=== PATIENT | female | born 1955 | race Two or more races ===

== ENCOUNTER 2018-06-21 16:06 | Emergency (ER) | payer OTHER ==
[~2018-06-21] VITALS: Ht 160 cm; Wt 65.8 kg
== END 2018-06-21 17:22 | disposition home or self-care (01) ==
LOC: ER 16:06
DX: M79.89 Other specified soft tissue disorders (principal)

== ENCOUNTER 2018-06-28 11:49 | Emergency (ER) | payer OTHER ==
[~2018-06-28] VITALS: Ht 162.6 cm; Wt 64.9 kg
== END 2018-06-28 17:20 | disposition home or self-care (01) ==
LOC: ER 11:49
DX: M25.562 Pain in left knee (principal)

== ENCOUNTER 2018-07-19 11:25 | Outpatient (CLI) | payer OTHER | END 2018-07-19 11:42 | disposition home or self-care (01) | LOC: MRI 11:25 | DX: M25.562 Pain in left knee (principal) | CPT/HCPCS: 73721 ==

== ENCOUNTER 2018-09-04 12:53 | Outpatient (CLI) | payer OTHER | END 2018-09-04 12:58 | disposition home or self-care (01) | LOC: SONOGRAMA 12:53 → MAMO-SONO 13:15 | DX: S82.032A Displaced transverse fracture of left patella, initial encounter for closed fracture (principal); M65.341 Trigger finger, right ring finger; M65.342 Trigger finger, left ring finger ==

== ENCOUNTER 2018-12-31 10:49 | Emergency (ER) | payer OTHER ==
[~2018-12-31] VITALS: Ht 160 cm; Wt 66.2 kg
[2018-12-31] MEDS ORDERED: KETO10TA2 PO (19:11)
[2018-12-31] MEDS ORDERED: SKELAXIN800 MG PO (19:11)
== END 2018-12-31 19:26 | disposition home or self-care (01) ==
LOC: ER 10:49
DX: K59.09 Other constipation (principal); M54.5 Low back pain; R10.31 Right lower quadrant pain

== ENCOUNTER 2019-03-04 13:35 | Emergency (ER) | payer OTHER ==
[~2019-03-04] VITALS: Ht 160 cm; Wt 61.2 kg
[~2019-03-04 13:35] MED LIST: KETO10TA2 PO; SKELAXIN800 MG PO
== END 2019-03-04 19:09 | disposition home or self-care (01) ==
LOC: ER 13:35
DX: M51.16 Intervertebral disc disorders with radiculopathy, lumbar region (principal); M51.17 Intervertebral disc disorders with radiculopathy, lumbosacral region